=== PATIENT | male | born 1960 | race Caucasian/White ===

== ENCOUNTER 2022-06-11 10:02 | Inpatient (IN) ==
[2022-06-11] MEDS ORDERED: Lactated Ringers 1000 ml BAG 1,000 ML IV ONE ×2 (10:34→11:50)
[2022-06-11] MEDS ORDERED: LORazepam 2 mg VIAL 1 ml IV PUSH ONE (10:58)
[2022-06-11] MEDS ORDERED: Lorazepam PYXIS KEY PRN (10:58)
[2022-06-11 11:10] LABS: ABS Basophils 0.1 10^3/ul (0-0.2); ABS Lymphocytes 0.4 10^3/ul (1.0-4.8); ABS Monocytes 1.1 10^3/ul (0-0.8); ABS Neutrophils 7.1 10^3/ul (1.5-7.7); Eosinophil % 0.1 %; Hematocrit 47 % (42-52); Hemoglobin 15.8 g/dL (14.0-18.0); Lymphocyte % 4.6 %; Mean Corpuscular HGB Conc 34 g/dL (31-36); Mean Corpuscular Hemoglobin 34 pg (27-31); Mean Corpuscular Volume 100 fL (80-94); Mean Platelet Volume 9.3 fL (7.4-10.4); Nucleated Red Blood Cells % 0.1; Platelet Count 137 10^3/uL (150-450); Red Blood Count 4.68 10^6 /uL (4.18-5.48); Red Cell Distribution Width 13 % (10-15); White Blood Count 8.7 10^3/uL (3.5-10.8)
[2022-06-11 11:35] LABS: Albumin 3.9 g/dL (3.2-5.2); Calcium 8.6 mg/dL (8.6-10.3); Globulin 3.8 g/dL (2-4); Potassium 4.1 mmol/L (3.5-5.0); Total Bilirubin 0.8 mg/dL (0.2-1.0); Total Protein 7.7 g/dL (6.4-8.9); eGFR CKD-EPI 99.3 (>60)
[2022-06-11] MEDS ORDERED: Sulfur Hexaflouride MICROSPHR 25 MG VIAL ONE (16:02)
[2022-06-11 16:59] LABS: Folate 7.46 ng/mL (5.90-24.80)
[2022-06-11] MEDS ORDERED: Metoprolol Tartrate 5 mg VIAL 5 ml VIAL (1 mg/ml) IV PRN (17:30)
[2022-06-11] MEDS ORDERED: Labetalol IV 5 MG/ML 20 ml VIAL IV PUSH PRN (17:33)
[2022-06-11] MEDS ORDERED: Calcium Carb (TUMS) 500 mg CHEW TAB PO PRN (18:23)
[2022-06-11] MEDS ORDERED: Furosemide 20 mg/2 ml IV VIAL IV SLOW PU ONE (20:01)
[2022-06-11] MEDS ORDERED: Digoxin IV 0.5 MG/2 ML AMP (0.25 MG/ML) IV SLOW PU ONE (20:01)
[2022-06-11 20:28] LABS: High Sensitivity Troponin 1 Hr 126 pg/mL (<20)
[2022-06-11] MEDS ORDERED: Remdesivir 100 mg Vial 200 MG in NS 0.9% 250 ml 210 ML IV ONE (21:00)
[2022-06-11] MEDS: Enoxaparin 100 MG/ML SYR SUBCUT SCH (22:21)
[2022-06-12 07:09] LABS: ABS Basophils 0.1 10^3/ul (0-0.2); ABS Lymphocytes 0.7 10^3/ul (1.0-4.8); ABS Monocytes 0.8 10^3/ul (0-0.8); ABS Neutrophils 3.8 10^3/ul (1.5-7.7); Eosinophil % 0.1 %; Hematocrit 42 % (42-52); Hemoglobin 14.3 g/dL (14.0-18.0); Mean Corpuscular HGB Conc 34 g/dL (31-36); Mean Corpuscular Hemoglobin 34 pg (27-31); Mean Corpuscular Volume 99 fL (80-94); Mean Platelet Volume 9.8 fL (7.4-10.4); Platelet Count 121 10^3/uL (150-450); Red Blood Count 4.25 10^6 /uL (4.18-5.48); Red Cell Distribution Width 14 % (10-15); White Blood Count 5.4 10^3/uL (3.5-10.8)
[2022-06-12 07:12] LABS: INR 1.41 (0.88-1.18)
[2022-06-12 07:27] LABS: ALT 22 U/L (7-52); AST 33 U/L (13-39); Albumin 3.4 g/dL (3.2-5.2); Albumin/Globulin Ratio 1.1 (1-3); Alkaline Phosphatase 64 U/L (35-149); Anion Gap 11 mmol/L (2-11); Blood Urea Nitrogen 10 mg/dL (6-24); CO2 Carbon Dioxide 24 mmol/L (22-32); Calcium 8.2 mg/dL (8.6-10.3); Chloride 100 mmol/L (101-111); Globulin 3.1 g/dL (2-4); Glucose 92 mg/dL (70-100); Sodium 135 mmol/L (135-145); Total Protein 6.5 g/dL (6.4-8.9); eGFR CKD-EPI 95.3 (>60)
[2022-06-12 08:54] LABS: Magnesium 1.2 mg/dL (1.9-2.7)
[2022-06-12] MEDS ORDERED: Magnesium Sulfate IV 3 GM in NS 0.9% 100 ml BAG 100 ML IVPB ONE (09:03)
[2022-06-12] MEDS: Enoxaparin 100 MG/ML SYR SUBCUT SCH ×2 (09:30→23:01)
[2022-06-12 10:28] LABS: Total Iron Binding Capacity 323 mcg/dL (250-450); Transferrin 231 mg/dL (203-362)
[2022-06-12 10:32] LABS: % Iron Saturation 6 % (15-55); Iron < 20 ug/dL (50-212); Unsaturated Iron Binding 303 ug/dL
[2022-06-12 10:50] LABS: Ferritin 269.2 ng/mL (24-336)
[2022-06-12 10:54] LABS: Vitamin B12 281 pg/mL (180-914)
[2022-06-12] MEDS ORDERED: Potassium Chloride LIQUID 20 MEQ/15 ML LIQUID PO ONE (11:04)
[2022-06-12] MEDS ORDERED: Metoprolol Tartrate 5 mg VIAL 5 ml VIAL (1 mg/ml) IV PRN (11:43)
[2022-06-12] MEDS ORDERED: Thiamine 100 MG/ML 2 ml VIAL (200 mg) IM ONE (12:14)
[2022-06-12 12:54] LABS: Alcohol, S < 13 mg/dL (<13)
[2022-06-12] MEDS: Multivitamins/Minerals TAB PO SCH (13:56)
[2022-06-12 16:44] LABS: Calcium 8.3 mg/dL (8.6-10.3); Magnesium 1.6 mg/dL (1.9-2.7); Potassium 4.1 mmol/L (3.5-5.0); eGFR CKD-EPI 96.9 (>60)
[2022-06-12] MEDS: Remdesivir 100 mg Vial 100 MG in NS 0.9% 250 ml 230 ML IV SCH (23:05)
[2022-06-13] MEDS: Benzocaine/Menthol LOZ PO PRN (03:33)
[2022-06-13 08:36] LABS: ABS Basophils 0.1 10^3/ul (0-0.2); ABS Lymphocytes 0.8 10^3/ul (1.0-4.8); ABS Monocytes 0.7 10^3/ul (0-0.8); ABS Neutrophils 3.8 10^3/ul (1.5-7.7); Eosinophil % 0.6 %; Hematocrit 43 % (42-52); Hemoglobin 14.8 g/dL (14.0-18.0); Lymphocyte % 14.7 %; Mean Corpuscular HGB Conc 34 g/dL (31-36); Mean Corpuscular Hemoglobin 34 pg (27-31); Mean Corpuscular Volume 99 fL (80-94); Mean Platelet Volume 9.8 fL (7.4-10.4); Nucleated Red Blood Cells % 0.2; Platelet Count 119 10^3/uL (150-450); Red Cell Distribution Width 13 % (10-15); White Blood Count 5.4 10^3/uL (3.5-10.8)
[2022-06-13 08:55] LABS: INR 1.46 (0.88-1.18)
[2022-06-13 08:59] LABS: Calcium 7.7 mg/dL (8.6-10.3); Globulin 3.1 g/dL (2-4); Magnesium 1.7 mg/dL (1.9-2.7); Potassium 3.8 mmol/L (3.5-5.0); Total Protein 6.1 g/dL (6.4-8.9); eGFR CKD-EPI 100.4 (>60)
[2022-06-13] MEDS ORDERED: Magnesium Sulfate IV 3 GM in NS 0.9% 100 ml BAG 100 ML IVPB ONE (10:13)
[2022-06-13] MEDS ORDERED: Potassium Chloride LIQUID 20 MEQ/15 ML LIQUID PO ONE (10:18)
[2022-06-13] MEDS: Multivitamins/Minerals TAB PO SCH (10:25)
[2022-06-13] MEDS: Enoxaparin 100 MG/ML SYR SUBCUT SCH ×2 (10:26→20:06)
[2022-06-13] MEDS ORDERED: Digoxin IV 0.5 MG/2 ML AMP (0.25 MG/ML) IV SLOW PU ONE (13:02)
[2022-06-13] MEDS ORDERED: Ferric Gluconate IV 125 MG in NS 0.9% 100 ml BAG 100 ML IVPB ONE (18:00)
[2022-06-13] MEDS: Remdesivir 100 mg Vial 100 MG in NS 0.9% 250 ml 230 ML IV SCH (22:45)
[2022-06-14 06:58] LABS: ABS Eosinophils 0.1 10^3/ul (0-0.6); ABS Monocytes 0.7 10^3/ul (0-0.8); Eosinophil % 1.5 %; Hematocrit 45 % (42-52); Hemoglobin 15.4 g/dL (14.0-18.0); INR 1.33 (0.88-1.18); Lymphocyte % 16.4 %; Mean Corpuscular HGB Conc 34 g/dL (31-36); Mean Corpuscular Hemoglobin 34 pg (27-31); Mean Corpuscular Volume 99 fL (80-94); Mean Platelet Volume 9.6 fL (7.4-10.4); Platelet Count 132 10^3/uL (150-450); Red Blood Count 4.59 10^6 /uL (4.18-5.48); Red Cell Distribution Width 13 % (10-15); White Blood Count 5.9 10^3/uL (3.5-10.8)
[2022-06-14 07:32] LABS: Calcium 7.8 mg/dL (8.6-10.3); Globulin 3.1 g/dL (2-4); Magnesium 2.1 mg/dL (1.9-2.7); Potassium 4.4 mmol/L (3.5-5.0); Total Bilirubin 0.8 mg/dL (0.2-1.0); Total Protein 6.1 g/dL (6.4-8.9); eGFR CKD-EPI 98.2 (>60)
[2022-06-14] MEDS: Multivitamins/Minerals TAB PO SCH (09:46)
[2022-06-14] MEDS: Enoxaparin 100 MG/ML SYR SUBCUT SCH ×2 (13:50→20:28)
[2022-06-14] MEDS ORDERED: guaiFENesin 100 mg/5 ml LIQ unit dose cup PO PRN (17:13)
[2022-06-14] MEDS: Benzocaine/Menthol LOZ PO PRN (18:01)
[2022-06-14] MEDS: Remdesivir 100 mg Vial 100 MG in NS 0.9% 250 ml 230 ML IV SCH (20:28)
[2022-06-15 06:15] LABS: ABS Eosinophils 0.2 10^3/ul (0-0.6); ABS Monocytes 0.7 10^3/ul (0-0.8); ABS Neutrophils 3.4 10^3/ul (1.5-7.7); Eosinophil % 2.9 %; Hematocrit 45 % (42-52); Hemoglobin 14.9 g/dL (14.0-18.0); Lymphocyte % 18.8 %; Mean Corpuscular HGB Conc 34 g/dL (31-36); Mean Corpuscular Hemoglobin 34 pg (27-31); Mean Corpuscular Volume 100 fL (80-94); Mean Platelet Volume 9.7 fL (7.4-10.4); Platelet Count 116 10^3/uL (150-450); Red Blood Count 4.44 10^6 /uL (4.18-5.48); Red Cell Distribution Width 14 % (10-15); White Blood Count 5.3 10^3/uL (3.5-10.8)
[2022-06-15 06:16] LABS: INR 1.28 (0.88-1.18)
[2022-06-15 06:26] LABS: Calcium 7.9 mg/dL (8.6-10.3); Potassium 4.3 mmol/L (3.5-5.0); Total Bilirubin 0.7 mg/dL (0.2-1.0); eGFR CKD-EPI 98.2 (>60)
[2022-06-15] MEDS: Multivitamins/Minerals TAB PO SCH (08:08)
[2022-06-15 08:44] LABS: Magnesium 1.8 mg/dL (1.9-2.7)
[2022-06-15] MEDS ORDERED: Magnesium Sulfate 2 gm BAG 2 GM/50 ML BAG IVPB ONE (10:46)
[2022-06-15] MEDS: Remdesivir 100 mg Vial 100 MG in NS 0.9% 250 ml 230 ML IV SCH (20:48)
[2022-06-16 06:32] LABS: INR 1.24 (0.88-1.18)
[2022-06-16 07:20] LABS: Albumin 3.1 g/dL (3.2-5.2); Calcium 8.1 mg/dL (8.6-10.3); Magnesium 2.1 mg/dL (1.9-2.7); Total Bilirubin 0.7 mg/dL (0.2-1.0); Total Protein 6.1 g/dL (6.4-8.9); eGFR CKD-EPI 76.7 (>60)
[2022-06-16] MEDS ORDERED: Heparin 1,000 UNIT/ML 10 ml (10,000 UNITS) CATHLAB/DIALYSIS ONE (07:21)
[2022-06-16] MEDS ORDERED: Midazolam 5 mg/5 ml VIAL 1 mg/ml 5 ml VIAL (5 mg) ONE (07:21)
[2022-06-16] MEDS ORDERED: VERAPAMIL 2.5 MG/ML 2 ML VIAL ** 5 mg/2 ml ONE (07:21)
[2022-06-16] MEDS ORDERED: fentaNYL 100 mcg/2 ml 50 MCG/ML VIAL ONE (07:21)
[2022-06-16] MEDS ORDERED: Heparin 2 UNITS/ML 1000 mls 2,000 ML IV ONE (07:22)
[2022-06-16] MEDS ORDERED: nitroGLYCERIN DRIP 25,000 MCG/250 ML BTL ONE (07:22)
[2022-06-16] MEDS ORDERED: Lidocaine 1% MPF 5 ML VIAL ONE (07:22)
[2022-06-16] MEDS ORDERED: Iohexol 350 (CONTRAST) 100 ML PAK IV ONE ×2 (07:28→08:23)
[2022-06-16] MEDS ORDERED: niCARdipine 0.1MG/ML IVPREMIX 20 MG/200 ML BAG IV ONE (07:28)
[2022-06-16 07:43] LABS: Potassium 5.1 mmol/L (3.5-5.0)
[2022-06-16] MEDS: Multivitamins/Minerals TAB PO SCH (09:14)
[2022-06-17 07:45] LABS: Calcium 8.1 mg/dL (8.6-10.3); Potassium 4.3 mmol/L (3.5-5.0); eGFR CKD-EPI 97.6 (>60)
[2022-06-17] MEDS ORDERED: Propofol 10 MG/ML 20 ML BTL ONE ×2 (10:23→11:06)
[2022-06-17] MEDS ORDERED: Lidocaine 2% PF 5 ML VIAL ONE ×2 (10:23→11:06)
[2022-06-17] MEDS: Multivitamins/Minerals TAB PO SCH (14:25)
[2022-06-17 15:07] VITALS: BP 128/91
== END 2022-06-17 17:30 | disposition home or self-care (01) | DRG 192 ==
LOC: ED 10:02 → EDHOLD 10:02 → MEDTELE 21:08 → SUATTDRO 06-12 12:23
PROVIDERS: ADMIT Internal Medicine; ATTEND Internal Medicine